=== PATIENT | male | born 1965 | race Caucasian/White ===

== ENCOUNTER 2016-10-06 15:19 | Inpatient (IN) | payer MEDICAID ==
[~2016-10-06] VITALS: Ht 167.6 cm; Wt 71.0 kg
[2016-10-06] MEDS ORDERED: SOD CHLORIDE 0.9% 1,000 ML IV STA (18:54)
[2016-10-06 19:00] VITALS: TEMP 97.8
[2016-10-06] MEDS ORDERED: ENALAPRILAT 1.25 MG INJ IV ONE (19:00)
[2016-10-06 19:25] LABS: ADD UMIC YES; URINE BILIRUBIN (Dip) NEGATIVE (NEGATIVE); URINE BLOOD (Dip) 1+ (NEGATIVE); URINE COLOR LT. YELLOW (YELLOW); URINE GLUCOSE (Dip) NEGATIVE (NEGATIVE); URINE KETONES (Dip) NEGATIVE (NEGATIVE); URINE LEUKOCYTE ESTERASE (Dip) NEGATIVE (NEGATIVE); URINE NITRITE (Dip) NEGATIVE (NEGATIVE); URINE TOTAL PROTEIN (Dip) 2+ (NEGATIVE); URINE UROBILINOGEN (Dip) 0.2 E.U./dL (0.1-1.0)
[2016-10-06 19:27] LABS: BASOPHIL # 0.1 10^3/ul (0.0-0.1); BASOPHILS % 0.5 % (0.0-2.0); EOSINOPHILS # 0.2 10^3/ul (0.0-0.5); EOSINOPHILS % 2.1 % (0.0-7.0); HEMATOCRIT 37.2 % (42.0-52.0); HEMOGLOBIN 12.7 g/dl (14.0-18.0); LYMPHOCYTES # 3.6 10^3/ul (0.8-2.9); LYMPHOCYTES % 32.2 % (15.0-51.0); MEAN CORPUSCULAR HEMOGLOBIN 29.8 pg (29.0-33.0); MEAN CORPUSCULAR HGB CONC 34.1 g/dl (32.0-37.0); MEAN CORPUSCULAR VOLUME 87.3 fl (82.0-101.0); MEAN PLATELET VOLUME 8.8 fl (7.4-10.4); MONOCYTE # 0.8 10^3/ul (0.3-0.9); MONOCYTES % 7.2 % (0.0-11.0); NEUTROPHIL # 6.5 10^3/ul (1.6-7.5); PLATELET COUNT 202 10^3/UL (140-440); RED BLOOD COUNT 4.26 10^6/ul (4.70-6.10); RED CELL DISTRIBUTION WIDTH 13.8 % (11.5-14.5); UNCORRECTED WBC 11.1 10^3/ul (4.8-10.8); WHITE BLOOD COUNT 11.1 10^3/ul (4.8-10.8)
[2016-10-06 19:30] LABS: CHLORIDE 94 mmol/L (97-110); POTASSIUM 3.4 mmol/L (3.5-5.1); SODIUM 139 mmol/L (135-144)
--- NOTE | 2016-10-06 19:31 | RADRPT ---
PROCEDURE: XR Chest. CLINICAL INDICATION: Shortness of breath TECHNIQUE: A single portable view of the chest was obtained. COMPARISON: None FINDINGS: The aorta is tortuous. The cardiomediastinal silhouette is otherwise within normal limits. The josy gs and pleural spaces are clear. The soft tissues and osseous structures are unremarkable. IMPRESSION: No acute cardiopulmonary disease. RPTAT: HPNM Physician Debra Date Time Electronically viewed and signed by Roby Gallegos Physician on 10/06/2016 19:31 /
[2016-10-06 19:32] LABS: ALBUMIN/GLOBULIN RATIO 1.11; ALKALINE PHOSPHATASE 108 IU/L (42-121); ANION GAP 18 (8-16); ASPARTATE AMINO TRANSFERASE 27 IU/L (15-46); BILIRUBIN,INDIRECT 0.2 mg/dl (0-1.1); BILIRUBIN,TOTAL 0.2 mg/dl (0.2-1.3); CARBON DIOXIDE 30 mmol/L (21-31); CREATININE 5.59 mg/dl (0.61-1.24); TOTAL PROTEIN 7.6 g/dl (6.1-8.1)
[2016-10-06 19:33] LABS: ALANINE AMINOTRANSFERASE 22 IU/L (13-69); BLOOD UREA NITROGEN 76 mg/dl (7-20); CONDITION 1; GLUCOSE 101 mg/dl (70-220)
[2016-10-06 19:44] LABS: URINE RBCS 0-2 /HPF (0)
[2016-10-06 19:46] LABS: TROPONIN-I < 0.012 ng/ml (0.00-0.12)
--- NOTE | 2016-10-06 19:47 | ERA ---
ER Documentation Chief Complaint Date/Time DATE: 10/06/16 TIME: 19:46 Chief Complaint SENT BY FOR ABNORMAL LABS DRAWN 3 DAYS AGO. FEELING ANXIOUS. HIGH BUN/CR HPI 51-year-old man referred here for high creatinine level. He states for the last few month he has been feeling very weak and tired, he has had 8-10 pound weight loss over the last 2 months, and states over the last 2 years he has had increased vision loss. He states on the weekends he uses an [id number] erection enhancement medication for the last few years, but other than that he is used no medications and has not seen a physician. States his brother of renal issues in his 60s. Patient denies hematuria or back pain, no fevers or chills, no vomiting or diarrhea, no headache. ROS All systems reviewed and are negative except as per history of present illness. Medications Home Meds No Active Prescriptions or Reported Meds Allergies Allergies: Coded Allergies: No Known Allergy (Unverified , 10/06/16) PMhx/Soc Medical and Surgical Hx: pt denies Surgical Hx History of Surgery: No Anesthesia Reaction: No Hx Neurological Disorder: No Hx Respiratory Disorders: No Hx Cardiac Disorders: Yes (HTN ) Hx Psychiatric Problems: No Hx Miscellaneous Medical Probl: No Hx Alcohol Use: No Hx Substance Use: No Hx Tobacco Use: No Smoking Status: Never smoker FmHx Renal problems Family History: No diabetes Physical Exam Vitals Vital Signs Date Time Temp Pulse Resp B/P Pulse Ox O2 Delivery O2 Flow Rate FiO2 10/06/16 21:33 76 20 171/89 99 Room Air 10/06/16 20:23 78 18 184/99 98 Room Air 10/06/16 19:00 97.8 77 20 194/98 99 Room Air 10/06/16 15:26 98.7 97 20 184/108 97 Physical Exam GENERAL: Well-developed, well-nourished, well-hydrated, in no apparent distress , looks nontoxic in appearance HEENT: Moist mucous membranes, pink conjunctiva, no cervical spine tenderness or step-off deformities, no goiter, no jaundice or icterus, extraocular movements intact without pain. No submandibular induration, and no pharyngeal erythema NEURO: Alert and oriented 3, cranial nerves II through XII intact bilaterally, pupils equal round reactive to light, no focal deficits or facial asymmetry, sensation intact distally Strength 5/5 in upper and lower extremities bilaterally CARDIAC: Regular rate and rhythm, no murmurs rubs or gallops LUNGS: Clear bilaterally no wheezing crackles or stridor ABDOMEN: Soft nontender, no guarding, no rigidity, no rebound, no psoas sign no obturator sign. Normoactive bowel sounds SKIN: Warm and dry to touch, no abrasions, contusions, or hematomas, no lacerations, no ecchymosis, no target lesions, and without ulcers EXTREMITIES: No clubbing cyanosis or edema, calves are bilaterally symmetrical, no Homans sign, no popliteal cord sign. Distal pulses equal and bilateral PSYCH: Normal affect without agitation or irritability Result Diagram: 10/06/16190410/06/161904 Results 24 hrs Laboratory Tests Test 10/06/16 19:05 10/06/16 19:10 Alanine Aminotransferase (ALT/SGPT) 22IU/L Albumin 4.0g/dl Albumin/Globulin Ratio 1.11 Alkaline Phosphatase 108IU/L Anion Gap 18 Aspartate Amino Transf (AST/SGOT) 27IU/L Basophils # 0.110^3/ul Basophils % 0.5% Blood Urea Nitrogen 76mg/dl Calcium Level 8.0mg/dl Carbon Dioxide Level 30mmol/L Chloride Level 94mmol/L Creatinine 5.59mg/dl Direct Bilirubin 0.00mg/dl Eosinophils # 0.210^3/ul Eosinophils % 2.1% Globulin 3.60g/dl Glucose Level 101mg/dl Hematocrit 37.2% Hemoglobin 12.7g/dl Indirect Bilirubin 0.2mg/dl Lipase 194U/L Lymphocytes # 3.610^3/ul Lymphocytes % 32.2% Mean Corpuscular Hemoglobin 29.8pg Mean Corpuscular Hemoglobin Concent 34.1g/dl Mean Corpuscular Volume 87.3fl Mean Platelet Volume 8.8fl Monocytes # 0.810^3/ul Monocytes % 7.2% Neutrophils # 6.510^3/ul Neutrophils % 58.0% Nucleated Red Blood Cells # 0.010^3/ul Nucleated Red Blood Cells % 0.0/100WBC Platelet Count 89953^3/UL Potassium Level 3.4mmol/L Red Blood Count 4.2610^6/ul Red Cell Distribution Width 13.8% Sodium Level 139mmol/L Total Bilirubin 0.2mg/dl Total Protein 7.6g/dl Troponin I < 0.012ng/ml White Blood Count 11.110^3/ul Urine Bilirubin NEGATIVE Urine Clarity CLEAR Urine Color LT. YELLOW Urine Glucose NEGATIVE% Urine Hemoglobin 1+ Urine Ketones NEGATIVE Urine Leukocyte Esterase NEGATIVE Urine Microscopic RBC 0-2/HPF Urine Microscopic WBC 0-2/HPF Urine Nitrite NEGATIVE Urine Specific [place] 1.010 Urine Total Protein 2+ Urine Urobilinogen 0.2 E.U./dL Urine pH 7.0 Current Medications Medications (Trade) Dose Ordered Sig/Mick Route PRN Reason Start Time Stop Time Status Last Admin Dose Admin Sodium Chloride (NS) 1,000 ml @ 1,000 mls/hr Q1H STAT IV 10/06/16 18:54 10/06/16 19:53 DC 10/06/16 19:43 Enalaprilat 1.25 mg 1.25 mg ONCE ONCE IV 10/06/16 19:00 10/06/16 19:01 DC 10/06/16 19:54 Potassium Chloride 250 ml @ 62.5 mls/hr ONCE ONCE IVPB 10/06/16 21:00 10/07/16 00:59 Calcium Gluconate/ Sodium Chloride (Ca Gluc/NS) 110 ml @ 110 mls/hr ONCE ONCE IVPB 10/06/16 21:00 10/06/16 21:59 DC 10/06/16 21:25 Hydralazine HCl (Apresoline) 10 mg Q6H PRN IV sbp>160mmhg 10/06/16 21:30 Metoprolol Tartrate (Lopressor) 25 mg BID PO 10/06/16 21:30 Aspirin (Halfprin) 81 mg DAILY PO 10/07/16 09:00 Docusate Sodium (Colace) 100 mg BID PO 10/07/16 09:00 Ondansetron HCl (Zofran Inj) 4 mg Q6H PRN IV NAUSEA AND/OR VOMITING 10/06/16 21:30 Famotidine (Pepcid) 20 mg DAILY PO 10/07/16 09:00 Heparin Sodium (Porcine) (Heparin (5000 Units/0.5 ml)) 5,000 unit BID SC 10/07/16 09:00 Hydralazine HCl (Apresoline) 25 mg Q8 PO 10/06/16 22:00 Procedures/MDM IV line was established patient was placed on leather belt shaper rhythm strip revealed a sinus rhythm at about 80 bpm with upright P and T waves. I administered 1 L normal saline intravenously and enalapril 1.25 mg IV for severe hypertension. EKG performed, read by me revealed a normal sinus rhythm at 80 bpm, normal axis , right ventricular conduction delay with a QRS duration of 102 ms, no concerning ST elevations or depressions noted. Chest X-ray 1V Interpreted by me: Soft Tissue: No acute abnormalities Bones: No acute abnormalities Mediastinum/Cardiac Silhouette/Lungs: No acute abnormalities CBC revealed mild anemia, electrolytes revealed hypokalemia and kidney failure with a BUN/creatinine of 76/5.6, liver function tests were unremarkable, calcium was low at 8, troponin was negative. Urine analysis was positive for 2 + proteins, no signs of infection. I administered calcium gluconate 1 g IV for hypocalcemia. Critical Care: Time: 35 minutes, this was time separate from other procedures. Treatments/Evaluations: Close monitoring and treatment of unstable vital signs, cardiorespiratory, and neurologic status, while maintaining tight balance of fluid, respiratory, and cardiac interventions. Bedside funduscopic examination was performed and I did not appreciate cotton- wool spots, hemorrhages, or obvious arteriolar narrowing. Although given the patient's symptoms and presentation I do suspect hypertensive retinopathy. Patient admitted to telemetry setting for continued medical management and nephrology consultation. Departure Diagnosis: Primary Impression: Acute renal failure Qualified Code: N17.0 - Acute renal failure with tubular necrosis Additional Impressions: Hypertensive nephrosclerosis Qualified Code: I12.9 - Hypertensive nephrosclerosis, stage 1-4 or unspecified chronic kidney disease Hypertensive retinopathy Qualified Code: H35.033 - Hypertensive retinopathy, bilateral Hypokalemia Hypocalcemia Condition: MAME Almendarez MD Oct 06, 2016 19:47
[2016-10-06] MEDS ORDERED: POTASSIUM CHLORIDE 250 ML IVPB ONE (21:00)
[2016-10-06] MEDS ORDERED: CALCIUM GLUCONATE 10% 1 GM in SOD CHLORIDE 0.9% 100 ML IVPB ONE (21:00)
--- NOTE | 2016-10-06 21:26 | HP ---
Date/Time of Note Date/Time of Note DATE: 10/06/16 TIME: 21:04 Assessment/Plan VTE Prophylaxis VTE Prophylaxis Intervention: SCD's Assessment/Plan Assessment/Plan 51 yo M sent to ER by MD with 1. Accelerated HTN 2. Acute renal failure r/o CKD versus Hypertensive Nephropathy 3. Hypokalemia PLAN: Admit tele Commence oral hypertensives to improve BP control Renal USS / Nephrology consult / gentle hydration for renal failure r/o ACS / 2D echo Renally dose all meds. Serial labs. PROPHYLAXIS: heparin . pepcid HPI/ROS Admit Date/Time Admit Date/Time 10/06/16 Hx of Present Illness PRESENTING COMPLAINT: sent by MD yesterday for abnormal labs HISTORY OF PRESENTING COMPLAINT: 51 yo M who went to urgent care for a routine physicial and was found to have severely elevated blood pressures. He was reffered to the ER here where he was also found to be in renal failure with creatinine of 5.6. He denies CP, n/v/d/c. he denies hematuria or dysuria or flank pain. He does have mild lethargy but no other symptoms. he had gone in just for a routine physical. ROS 12 point review if systems was done and pertinent findings are as noted. PMH/Family/Social Past Medical History * None per patient Past Surgical History Past Surgical Hx: no surgical history Family History Significant Family History: hypertension Social History Alcohol Use: none Smoking Status: Never smoker Drug Use: none Exam/Review of Systems Vital Signs Vitals VS - Last 72 Hours, by Label Date Time Temp Pulse Resp B/P Pulse Ox O2 Delivery O2 Flow Rate FiO2 10/06/16 20:23 78 18 184/99 98 Room Air 10/06/16 19:00 97.8 77 20 194/98 99 Room Air 10/06/16 15:26 98.7 97 20 184/108 97 Vital Signs Date Time Temp Pulse Resp B/P Pulse Ox O2 Delivery O2 Flow Rate FiO2 10/06/16 20:23 78 18 184/99 98 Room Air 10/06/16 19:00 97.8 Exam Constitutional: alert, oriented, No distress Head: normocephalic Eyes: PERRL ENMT: mucosa pink and moist Neck: supple Respiratory: clear to auscultation, normal air movement Cardiovascular: regular rate and rhythm Gastrointestinal: bowel sounds, non-tender, soft Musculoskeletal: nl extremities to inspection Extremities: No edema Neurological: nl mental status, nl speech, No focal weakness Labs Result Diagram: 10/06/16190410/06/161904 Medications Medications Current Medications Potassium Chloride 250 ml @ 62.5 mls/hr ONCE ONCE IVPB ; Start 10/06/16 at 21: 00; Stop 10/07/16 at 00:59 Calcium Gluconate/ Sodium Chloride (Ca Gluc/NS) 110 ml @ 110 mls/hr ONCE ONCE IVPB ; Start 10/06/16 at 21:00; Stop 10/06/16 at 21:59 Procedures Procedures Laboratory Tests Test 10/06/16 19:05 10/06/16 19:10 Alanine Aminotransferase (ALT/SGPT) 22IU/L Albumin 4.0g/dl Albumin/Globulin Ratio 1.11 Alkaline Phosphatase 108IU/L Anion Gap 18 Aspartate Amino Transf (AST/SGOT) 27IU/L Basophils # 0.110^3/ul Basophils % 0.5% Blood Urea Nitrogen 76mg/dl Calcium Level 8.0mg/dl Carbon Dioxide Level 30mmol/L Chloride Level 94mmol/L Creatinine 5.59mg/dl Direct Bilirubin 0.00mg/dl Eosinophils # 0.210^3/ul Eosinophils % 2.1% Globulin 3.60g/dl Glucose Level 101mg/dl Hematocrit 37.2% Hemoglobin 12.7g/dl Indirect Bilirubin 0.2mg/dl Lipase 194U/L Lymphocytes # 3.610^3/ul Lymphocytes % 32.2% Mean Corpuscular Hemoglobin 29.8pg Mean Corpuscular Hemoglobin Concent 34.1g/dl Mean Corpuscular Volume 87.3fl Mean Platelet Volume 8.8fl Monocytes # 0.810^3/ul Monocytes % 7.2% Neutrophils # 6.510^3/ul Neutrophils % 58.0% Nucleated Red Blood Cells # 0.010^3/ul Nucleated Red Blood Cells % 0.0/100WBC Platelet Count 39450^3/UL Potassium Level 3.4mmol/L Red Blood Count 4.2610^6/ul Red Cell Distribution Width 13.8% Sodium Level 139mmol/L Total Bilirubin 0.2mg/dl Total Protein 7.6g/dl Troponin I < 0.012ng/ml White Blood Count 11.110^3/ul Urine Bilirubin NEGATIVE Urine Clarity CLEAR Urine Color LT. YELLOW Urine Glucose NEGATIVE% Urine Hemoglobin 1+ Urine Ketones NEGATIVE Urine Leukocyte Esterase NEGATIVE Urine Microscopic RBC 0-2/HPF Urine Microscopic WBC 0-2/HPF Urine Nitrite NEGATIVE Urine Specific [place] 1.010 Urine Total Protein 2+ Urine Urobilinogen 0.2 E.U./dL Urine pH 7.0 Current Medications Medications (Trade) Dose Ordered Sig/Mick Route PRN Reason Start Time Stop Time Status Last Admin Dose Admin Sodium Chloride (NS) 1,000 ml @ 1,000 mls/hr Q1H STAT IV 10/06/16 18:54 10/06/16 19:53 DC 10/06/16 19:43 1,000 MLS/HR Enalaprilat 1.25 mg 1.25 mg ONCE ONCE IV 10/06/16 19:00 10/06/16 19:01 DC 10/06/16 19:54 1.25 MG Potassium Chloride 250 ml @ 62.5 mls/hr ONCE ONCE IVPB 10/06/16 21:00 10/07/16 00:59 Calcium Gluconate/ Sodium Chloride (Ca Gluc/NS) 110 ml @ 110 mls/hr ONCE ONCE IVPB 10/06/16 21:00 10/06/16 21:59 PROCEDURE: XR Chest. CLINICAL INDICATION: Shortness of breath TECHNIQUE: A single portable view of the chest was obtained. COMPARISON: None FINDINGS: The aorta is tortuous. The cardiomediastinal silhouette is otherwise within normal limits. The lungs and pleural spaces are clear. The soft tissues and osseous structures are unremarkable. IMPRESSION: No acute cardiopulmonary disease. RPTAT: HPNM Roby Gallegos, Physician Date Time Electronically viewed and signed by Roby Gallegos, Physician on 10/06/2016 19 :31 I reviewed EKG Rate: Within normal limits Rhythm: sinus Note: No ST elevation or depressions noted concerning for acute ischemic event. ERIC LIVE Oct 06, 2016 21:14
[2016-10-06 21:30] VITALS: BMI 25.3
[2016-10-06] MEDS ORDERED: hydrALAzine 20 MG INJ IV PRN (21:30)
[2016-10-06] MEDS ORDERED: ONDANSETRON 4 MG INJ IV PRN (21:30)
--- NOTE | 2016-10-06 22:23 | RADRPT ---
PROCEDURE: Renal US. CLINICAL INDICATION: Abnormal laboratory values TECHNIQUE: Multiple sonographic images of the kidneys were obtained. The images were reviewed on a PACS workstation. Technical note: The exam is limited by the patient's large body habitus COMPARISON: No prior studies are available for comparison. FINDINGS: Right kidney: Increased cortical echogenicity with multiple simple appearing cysts, the largest umair sure 1.5 x 1.3 x 1.1 cm. No solid mass, calculus or hydronephrosis is present. Renal length is wit hin normal limits estimated at 9.4 cm. Left kidney: Increase cortex echogenicity with multiple simple cysts the largest measuring 3.8 x 2. 9 x 3.2 cm. No solid mass, calculus or hydronephrosis is present. Renal length is within normal li mits estimated at 12.4 cm. Urinary bladder: Unremarkable RPTAT:HJJR IMPRESSION: 1. Increased renal cortex echogenicity concerning for medical renal disease with normal renal size. 2. Simple appearing acquired cysts of the kidneys. 3. No evidence of hydronephrosis. Physician Isiah Date Time Electronically viewed and signed by Physician Isiah on 10/06/2016 22:23 /
[2016-10-06 23:09] VITALS: PULSE 82
[2016-10-06 23:47] LABS: BARBITURATES NEGATIVE (NEGATIVE); BENZODIAZEPINES NEGATIVE (NEGATIVE); CANNABINOIDS NEGATIVE (NEGATIVE); COCAINE NEGATIVE (NEGATIVE)
[2016-10-06 23:48] LABS: OPIATES NEGATIVE (NEGATIVE)
[2016-10-07] VITALS (16 sets, daily range): BP systolic 116–163; BP diastolic 61–94; PULSE 66–75; RESP 18–20; Ht 167.6 cm; Wt 71.0 kg
[2016-10-07] MEDS: METOPROLOL 25 MG TAB PO SCH ×3 (00:42→21:11)
[2016-10-07 01:26] LABS: CREATINE KINASE 222 IU/L (23-200)
[2016-10-07 01:37] LABS: CK-MB 1.98 ng/ml (0.0-2.4); TROPONIN-I < 0.012 ng/ml (0.00-0.12)
[2016-10-07] MEDS: ACETAMINOPHEN 325 MG TAB PO PRN (07:03)
[2016-10-07] MEDS: DOCUSATE SODIUM 100 MG CAP PO SCH ×2 (08:52→21:10)
[2016-10-07] MEDS: ASPIRIN (EC) 81 MG TAB PO SCH (08:52)
[2016-10-07] MEDS: HEPARIN 5,000 UNIT/0.5 ML SYG SC SCH ×3 (08:56→21:11)
[2016-10-07 09:54] LABS: BASOPHILS % 0.2 % (0.0-2.0); EOSINOPHILS # 0.3 10^3/ul (0.0-0.5); EOSINOPHILS % 2.9 % (0.0-7.0); HEMOGLOBIN 12.6 g/dl (14.0-18.0); LYMPHOCYTES # 2.3 10^3/ul (0.8-2.9); LYMPHOCYTES % 24.8 % (15.0-51.0); MEAN CORPUSCULAR HEMOGLOBIN 29.8 pg (29.0-33.0); MEAN CORPUSCULAR VOLUME 87.8 fl (82.0-101.0); MEAN PLATELET VOLUME 8.9 fl (7.4-10.4); MONOCYTE # 0.7 10^3/ul (0.3-0.9); MONOCYTES % 7.9 % (0.0-11.0); NEUTROPHILS % 64.2 % (39.0-77.0); PLATELET COUNT 193 10^3/UL (140-440); RED BLOOD COUNT 4.21 10^6/ul (4.70-6.10); RED CELL DISTRIBUTION WIDTH 14.2 % (11.5-14.5); UNCORRECTED WBC 9.3 10^3/ul (4.8-10.8); WHITE BLOOD COUNT 9.3 10^3/ul (4.8-10.8)
[2016-10-07 10:04] LABS: PARTIAL THROMBOPLASTIN TIME 29.6 Sec (25.0-35.0)
[2016-10-07 10:05] LABS: CONDITION 1
[2016-10-07 10:07] LABS: INR 0.91; PROTIME 12.2 Sec (12.2-14.2)
[2016-10-07 10:15] LABS: CREATINE KINASE 207 IU/L (23-200)
--- NOTE | 2016-10-07 10:16 | PN ---
Date/Time of Note Date/Time of Note DATE: 10/07/16 TIME: 10:13 Assessment/Plan VTE Prophylaxis VTE Prophylaxis Intervention: heparin Lines/Catheters IV Catheter Type (from Nrsg): Peripheral IV Urinary Cath still in place: No Assessment/Plan Assessment/Plan 51 yo M sent to ER by MD with 1. Hypertensive Urgency - blood pressure stable - continue with hydralazine/ lopressor - monitor acute changes 2. Acute renal failure r/o CKD versus Hypertensive Nephropathy - awaiting nephro consult - CKD stage IV - will continue with IVF 3. Hypokalemia - replete, check magnesium 4. GI ppx - pepcid 5. DVT ppx - heparin dispo - f/u recs, labs, as per clinical course this progress note took greater than 40 minutes to complete Subjective 24 Hr Interval Summary Free Text/Dictation Patient was admitted for hypertensive urgency and chronic kidney disease. Patient has not been taking his blood pressure medications. Denies any family history of kidney/renal disease. Spoke to him in [place] about the care plan. 20 minutes spent. Exam/Review of Systems Vital Signs Vitals Vital Signs Date Time Temp Pulse Resp B/P Pulse Ox O2 Delivery O2 Flow Rate FiO2 10/07/16 08:57 73 10/07/16 06:59 98.0 18 116/66 97 10/07/16 06:10 Room Air Intake and Output 10/06/16 10/06/16 10/07/16 15:00 23:00 07:00 Intake Total 150 ml Output Total 610 ml Balance -460 ml Exam Gen Prasanna: NAD, AAOx4 HEENT: NC/AT, PERRLA, EOMI, no pharyngeal erythema, no tonsillar exudates, no lymphadenopathy, no JVD, no carotid bruits NECK: supple, no thyromegaly THORAX: symmetrical, no obvious deformities CV: S1S2, RRR, no M/G/R Lungs: CTAB no W/C/R/R Abd: soft, NT/ND, +BS, no rebound, no guarding, neg HSM EXT: no edema, no ecchymosis, no clubbing, FROM Neuro: CN II-XII grossly intact, no focal deficits Psych: good mentation, alert and oriented, good mood and affect Skin: C/D/I Results Result Diagram: 10/07/16 0935 10/06/16 7020 Results 24 hrs Laboratory Tests Test 2/7/17 19:05 10/06/16 19:10 10/07/16 00:27 10/07/16 09:35 Alanine Aminotransferase (ALT/SGPT) 22 Albumin 4.0 Albumin/Globulin Ratio 1.11 Alkaline Phosphatase 108 Anion Gap 18 H Aspartate Amino Transf (AST/SGOT) 27 Basophils # 0.1 0.0 Basophils % 0.5 0.2 Blood Urea Nitrogen 76 H Calcium Level 8.0 L Carbon Dioxide Level 30 Chloride Level 94 L Creatinine 5.59 H Direct Bilirubin 0.00 Eosinophils # 0.2 0.3 Eosinophils % 2.1 2.9 Globulin 3.60 H Glucose Level 101 Hematocrit 37.2 L 37.0 L Hemoglobin 12.7 L 12.6 L Indirect Bilirubin 0.2 Lipase 194 Lymphocytes # 3.6 H 2.3 Lymphocytes % 32.2 24.8 Mean Corpuscular Hemoglobin 29.8 29.8 Mean Corpuscular Hemoglobin Concent 34.1 34.0 Mean Corpuscular Volume 87.3 87.8 Mean Platelet Volume 8.8 8.9 Monocytes # 0.8 0.7 Monocytes % 7.2 7.9 Neutrophils # 6.5 6.0 Neutrophils % 58.0 64.2 Nucleated Red Blood Cells # 0.0 0.0 Nucleated Red Blood Cells % 0.0 0.0 Platelet Count 202 193 Potassium Level 3.4 L Red Blood Count 4.26 L 4.21 L Red Cell Distribution Width 13.8 14.2 Sodium Level 139 Total Bilirubin 0.2 Total Protein 7.6 Troponin I < 0.012 < 0.012 White Blood Count 11.1 H 9.3 Urine Amphetamines Screen NEGATIVE Urine Barbiturates NEGATIVE Urine Benzodiazepines Screen NEGATIVE Urine Bilirubin NEGATIVE Urine Cannabinoids NEGATIVE Urine Clarity CLEAR Urine Cocaine Screen NEGATIVE Urine Color LT. YELLOW Urine Glucose NEGATIVE Urine Hemoglobin 1+ H Urine Ketones NEGATIVE Urine Leukocyte Esterase NEGATIVE Urine Microscopic RBC 0-2 Urine Microscopic WBC 0-2 Urine Nitrite NEGATIVE Urine Opiates Screen NEGATIVE Urine Specific [place] 1.010 Urine Total Protein 2+ H Urine Urobilinogen 0.2 E.U./dL Urine pH 7.0 Creatine Kinase 222 H Creatine Kinase Index 0.9 Creatinine Kinase MB (Mass) 1.98 Activated Partial Thromboplast Time 29.6 INR International Normalized Ratio 0.91 Prothrombin Time 12.2 Prothrombin Time Ratio 1.0 Medications Medications Current Medications Hydralazine HCl (Apresoline) 10 mg Q6H PRN IV sbp>160mmhg Last administered on 10/07/16 03:19; Admin Dose 10 MG; Start 10/06/16 at 21:30 Metoprolol Tartrate (Lopressor) 25 mg BID PO Last administered on 10/07/16 08: 53; Admin Dose 25 MG; Start 10/06/16 at 21:30 Aspirin (Halfprin) 81 mg DAILY PO Last administered on 10/07/16 08:52; Admin Dose 81 MG; Start 10/07/16 at 09:00 Docusate Sodium (Colace) 100 mg BID PO Last administered on 10/07/16 08:52; Admin Dose 100 MG; Start 10/07/16 at 09:00 Ondansetron HCl (Zofran Inj) 4 mg Q6H PRN IV NAUSEA AND/OR VOMITING; Start 10/06 at 21:30 Famotidine (Pepcid) 20 mg DAILY PO ; Start 10/07/16 at 09:00 Heparin Sodium (Porcine) (Heparin (5000 Units/0.5 ml)) 5,000 unit BID SC Last administered on 10/07/16 08:56; Admin Dose 5,000 UNIT; Start 10/07/16 at 09:00 Hydralazine HCl (Apresoline) 25 mg Q8 PO Last administered on 10/07/16 06:13; Admin Dose 25 MG; Start 10/06/16 at 22:00 Acetaminophen (Tylenol Tab) 650 mg Q6H PRN PO PAIN AND OR ELEVATED TEMP Last administered on 10/07/16 07:03; Admin Dose 650 MG; Start 10/07/16 at 07:00 KATHRIN SANDERS MD Oct 07, 2016 10:16
[2016-10-07 10:32] LABS: CK-MB 1.65 ng/ml (0.0-2.4); TROPONIN-I < 0.012 ng/ml (0.00-0.12)
[2016-10-07 10:49] LABS: THYROID STIMULATING HORMONE 2.46 MIU/L (0.465-4.680)
[2016-10-07 10:55] LABS: HAAIG REFLEX REFLEX FILED
[2016-10-07 11:07] LABS: CHLORIDE 97 mmol/L (97-110); POTASSIUM 3.6 mmol/L (3.5-5.1); SODIUM 139 mmol/L (135-144)
[2016-10-07 11:09] LABS: CREATINE KINASE 217 IU/L (23-200)
[2016-10-07 11:10] LABS: ANION GAP 14 (8-16); BLOOD UREA NITROGEN 72 mg/dl (7-20); CALCIUM 8.1 mg/dl (8.4-10.2); CARBON DIOXIDE 32 mmol/L (21-31); GLUCOSE 99 mg/dl (70-220); URIC ACID 9.3 mg/dl (3.1-7.9)
[2016-10-07 11:27] LABS: CHOL/HDL RATIO 9.4 RATIO
[2016-10-07 11:28] LABS: MAGNESIUM 1.8 mg/dl (1.7-2.5)
[2016-10-07 11:59] LABS: HEPATITIS B CORE ANTIBODY NEGATIVE (NEGATIVE)
--- NOTE | 2016-10-07 12:44 | CONS ---
DATE OF ADMISSION: 10/06/2016 DATE OF CONSULTATION: 10/06/2016 NEPHROLOGY CONSULTATION REASON FOR CONSULTATION: Acute kidney injury versus acute on chronic renal failure with a creatinin e 5.2. REFERRING PHYSICIAN: Aneudy Coreas MD HISTORY OF PRESENT ILLNESS: This is a 51-year-old male who has a past medical history of hypertensi on, history of previous chronic kidney disease, unknown stage, likely stage IV, as per the patient, vague history likely secondary to hypertensive nephrosclerosis, who has not been seen by any doctor since 2009. The patient has not been taking any of his blood pressure medications. He denies any p revious family history of kidney disease or dialysis in the family. The patient presented to the [facility] with a blood pressure of 194/98. He is noted to have a creatinine of 5.2 . The patient had a significant advanced acute chronic kidney disease. On top of that, he has acut e on chronic renal failure, progressing to end-stage renal disease and nephrology has been consulted for management of that. At the time of my evaluation, he denies any chest pain, palpitations, head ache, dizziness, blurry vision, constipation, diarrhea, dysuria, increased urinary frequency. REVIEW OF SYSTEMS: Positive for elevated blood pressures, nausea, vomiting, and difficulty in sleep . Other 12 point review of systems has been obtained and is negative except what is mentioned in th e history of present illness. PAST MEDICAL HISTORY: History of hypertension, possible history of chronic kidney disease stage IV as per the patient's vague history, has not seen any physician for the last 5 to 6 years. PAST SURGICAL HISTORY: None as per the patient. SOCIAL HISTORY: The patient denies any smoking, alcohol, or recreational drug use. FAMILY HISTORY: Noncontributory. The patient denies any history of chronic kidney disease or end-s tage renal disease in the family. PHYSICAL EXAMINATION: VITAL SIGNS: Temperature 98.2, heart rate 78, respirations 18, blood pressure 146/84, saturation 97 % on room air. GENERAL: Awake, alert, in moderate distress. HEENT: Normal. Oropharynx clear. NECK: Supple, no JVD, no lymphadenopathy. LUNGS: Clear to auscultation. Bibasilar crackles, rales present. HEART: S1, S2, with regular rhythm. ABDOMEN: Soft, nontender, nondistended. Bowel sounds are present. EXTREMITIES: No clubbing, cyanosis, or edema. NEUROLOGICAL: Nonfocal, intact. PSYCHIATRIC: Appropriate affect and mood. LABORATORY DATA/DIAGNOSTIC IMAGIN. Sodium 139, potassium 3.6, chloride 97, bicarbonate 32, BUN 72, creatinine is 5.2, glucose 99, c alcium is 8.1, uric acid 9.3, CK 217. PT 12.2, PTT 29.6, INR 0.91. 2. Urinalysis consistent with 1+ hemoglobin, 2+ protein. 3. A urine toxicology is negative. 4. HIV and hepatitis panel have been negative. 5. WBC 9.7, hemoglobin 12.6, platelet count is 193. 6. Renal ultrasound done in the emergency room shows increased renal cortical echogenicity concerni ng for medical renal disease with normal renal size, simple-appearing acquired cysts of the kidneys. No evidence of hydronephrosis. IMPRESSION: This is a 51-year-old male with: 1. Acute hypertensive emergency. 2. Acute kidney injury on chronic kidney disease stage IV, progressing to end-stage renal disease. 3. History of chronic kidney disease stage IV secondary to hypertensive nephrosclerosis. The patie nt has not been seen by a doctor and has not been taking medications for the last few years. 4. History of hypertension. PLAN: Thank you, Dr. Joss Amado, for this consultation. The patient's renal ultrasound has been consistent with advanced medical renal disease. He gives a history of a chronic kidney disease stag e IV with a very low GFR, has not seen any doctors, has not been taking any blood pressure medicatio ns. Currently, he came in with an acute kidney injury on chronic kidney disease progressing to end- stage renal disease. 1. I will order the HIV, hepatitis panel. 2. Urine studies have been ordered for the workup of a prerenal azotemia. 3. The patient will likely need initiation of hemodialysis, so I will order the catheter placement by interventional radiology tomorrow. The patient is currently seen in the telemetry floor and he w ill be followed up along with the hospitalist team. Dictated By: CHAPIN VIDALES MD, KP/DREW Conf#: [id number] DID#: [id number]
[2016-10-07] MEDS: FAMOTIDINE 20 MG TAB PO SCH (12:52)
--- NOTE | 2016-10-07 22:02 | RADRPT ---
Echocardiogram Report Patient Name: JOÃO SMITH Gender: Male Date: 1965 Study Date: 07-Oct-2016 Golf Teacher: Gian Tyson RDCS Location: 520 Ref. Physician: ERIC LIVE Quality: Good Procedures: Transthoracic echocardiogram with complete 2D, M-Mode, and doppler examination. Indications: Hypertension. 2D/M Mode Doppler Measurement Value Normal Ranges Measurement Value Normal Ranges LVIDd 2D 4.6 3.5 - 5.6 cm AV Peak Aamir 1.1 m/sec LVIDs 2D 3.1 2.1 - 4.1 cm AV Peak PG 5.0 mmHg LVPWd 2D 0.9 0.6 - 1.1 cm LVOT Peak Aamir 0.9 m/sec IVSd 2D 1.0 0.6 - 1.1 cm LVOT Peak PG 3.4 mmHg AoR Diam 2D 3.2 2.0 - 3.7 cm MV E Peak Aamir 0.6 m/sec EDV 2D 98.5 cm3 MV A Peak Aamir 0.7 m/sec ESV 2D 30.5 cm3 MV E/A 0.9 LA Dimen 2D 3.4 2.3 - 4.0 cm MV Decel Time 155 msec MV Decel Bradley 4 MV E/A 0.9 TR Peak Aamir 2.1 m/sec TR Peak PG 17.0 mmHg RVSP 20.0 mmHg Findings Left Ventricle: Normal left ventricular systolic function. Normal left ventricular cavity size. Normal left ventricular wall thickness. Ejection fraction is visually estimated at 65 %. Tissue Doppler/Mitral Doppler indices are consistent with impaired relaxation (Stage I diastolic dysfunction). Right Ventricle: Normal right ventricular size. Normal right ventricular systolic function. Left Atrium: The left atrium is normal in size. Right Atrium: The right atrium is normal in size. Mitral Valve: Normal appearance and function of the mitral valve with trace physiologic regurgitation. Aortic Valve: Normal appearance of the aortic valve. No significant aortic stenosis or insufficiency. Tricuspid Valve: Normal appearance and function of the tricuspid valve with trace physiologic regurgitation. Estimated peak PA systolic pressure 20 mmHg. Pericardium: Normal pericardium with no significant pericardial effusion. Aorta: Normal aortic root. IVC: Normal size and normal respiratory collapse consistent with normal right atrial pressure. Conclusions Normal left ventricular systolic function. Normal left ventricular cavity size. Normal left ventricular wall thickness. Ejection fraction is visually estimated at 65 %. Tissue Doppler/Mitral Doppler indices are consistent with impaired relaxation (Stage I diastolic dysfunction). Normal right ventricular size. Normal right ventricular systolic function. The left atrium is normal in size. The right atrium is normal in size. No significant valvular stenosis or regurgitation seen. Normal pericardium with no significant pericardial effusion. Electronically Signed By: Low Guzman 07-Oct-2016 22:02:31 -0800 Patient Name: JOÃO SMITH Study Date: 07-Oct-2016 [id number]
[2016-10-08] VITALS (29 sets, daily range): BP systolic 105–174; BP diastolic 62–102; PULSE 65–86; RESP 14–20
[2016-10-08] MEDS: HEPARIN 5,000 UNIT/0.5 ML SYG SC SCH ×2 (08:03→21:57)
[2016-10-08] MEDS: FAMOTIDINE 20 MG TAB PO SCH (08:03)
[2016-10-08] MEDS: METOPROLOL 25 MG TAB PO SCH ×2 (08:03→21:48)
[2016-10-08] MEDS: ASPIRIN (EC) 81 MG TAB PO SCH (08:03)
[2016-10-08] MEDS: DOCUSATE SODIUM 100 MG CAP PO SCH ×2 (08:03→21:48)
[2016-10-08 09:53] LABS: BASOPHILS % 0.3 % (0.0-2.0); EOSINOPHILS # 0.3 10^3/ul (0.0-0.5); HEMATOCRIT 39.7 % (42.0-52.0); HEMOGLOBIN 13.2 g/dl (14.0-18.0); LYMPHOCYTES # 3.7 10^3/ul (0.8-2.9); LYMPHOCYTES % 34.4 % (15.0-51.0); MEAN CORPUSCULAR HEMOGLOBIN 29.1 pg (29.0-33.0); MEAN CORPUSCULAR HGB CONC 33.2 g/dl (32.0-37.0); MEAN CORPUSCULAR VOLUME 87.4 fl (82.0-101.0); MEAN PLATELET VOLUME 10.6 fl (7.4-10.4); MONOCYTE # 0.8 10^3/ul (0.3-0.9); MONOCYTES % 7.3 % (0.0-11.0); NEUTROPHIL # 5.9 10^3/ul (1.6-7.5); NEUTROPHILS % 54.4 % (39.0-77.0); PLATELET COUNT 216 10^3/UL (140-440); RED BLOOD COUNT 4.54 10^6/ul (4.70-6.10); RED CELL DISTRIBUTION WIDTH 13.4 % (11.5-14.5); WHITE BLOOD COUNT 10.9 10^3/ul (4.8-10.8)
[2016-10-08] MEDS ORDERED: MAGNESIUM SULFATE 2 GM/50 ML 50 ML IVPB ONE (10:00)
--- NOTE | 2016-10-08 10:01 | PN ---
Date/Time of Note Date/Time of Note DATE: 10/08/16 TIME: 09:57 Assessment/Plan VTE Prophylaxis VTE Prophylaxis Intervention: heparin Lines/Catheters IV Catheter Type (from Nrsg): Saline Lock Urinary Cath still in place: No Assessment/Plan Assessment/Plan 51 yo M sent to ER by with 1. Hypertensive Urgency - blood pressure stable - continue with hydralazine/ lopressor - monitor acute changes - ACEI should be started - defer to nephro 2. Acute renal failure r/o CKD versus Hypertensive Nephropathy - awaiting nephro consult - CKD stage IV - will continue with IVF 3. Hypokalemia - replete, check magnesium 4. GI ppx - pepcid 5. DVT ppx - heparin dispo - f/u recs, labs, as per clinical course, poss d/c tomorrow if stable and cleared this progress note took greater than 30 minutes to complete Subjective 24 Hr Interval Summary Free Text/Dictation Patient had no overnight events. I spoke to him about adhering to the medications as prescribed. Spoke to him about the care plan. 15 minutes spent. Exam/Review of Systems Vital Signs Vitals Vital Signs Date Time Temp Pulse Resp B/P Pulse Ox O2 Delivery O2 Flow Rate FiO2 10/08/16 08:24 70 10/08/16 07:22 98.2 16 116/62 97 10/07/16 06:10 Room Air Intake and Output 10/07/16 10/07/16 10/08/16 15:00 23:00 07:00 Intake Total 240 ml 1000 ml Output Total 200 ml 1500 ml 900 ml Balance 40 ml -500 ml -900 ml Exam Gen Prasanna: NAD, AAOx4 HEENT: NC/AT, PERRLA, EOMI, no pharyngeal erythema, no tonsillar exudates, no lymphadenopathy, no JVD, no carotid bruits NECK: supple, no thyromegaly THORAX: symmetrical, no obvious deformities CV: S1S2, RRR, no M/G/R Lungs: CTAB no W/C/R/R Abd: soft, NT/ND, +BS, no rebound, no guarding, neg HSM EXT: no edema, no ecchymosis, no clubbing, FROM Neuro: CN II-XII grossly intact, no focal deficits Psych: good mentation, alert and oriented, good mood and affect Skin: C/D/I Results Result Diagram: 10/08/16 0900 10/07/16 1040 Results 24 hrs Laboratory Tests Test 10/07/16 10:40 10/07/16 17:40 10/08/16 09:00 Anion Gap 14 Blood Urea Nitrogen 72 H Calcium Level 8.1 L Carbon Dioxide Level 32 H Chloride Level 97 Creatine Kinase 217 H Creatinine 5.20 H Glucose Level 99 HIV (1&2) Antibody NEGATIVE Hepatitis B Core Total Antibody NEGATIVE Hepatitis B Surface Antigen NEGATIVE Hepatitis C Antibody NEGATIVE Potassium Level 3.6 Sodium Level 139 Uric Acid 9.3 H Urine Eosinophils % 0.0 Urine Random Creatinine 36.15 Urine Random Sodium 52 Urine Total Protein Basophils # 0.0 Basophils % 0.3 Eosinophils # 0.3 Eosinophils % 3.0 Hematocrit 39.7 L Hemoglobin 13.2 L Lymphocytes # 3.7 H Lymphocytes % 34.4 Mean Corpuscular Hemoglobin 29.1 Mean Corpuscular Hemoglobin Concent 33.2 Mean Corpuscular Volume 87.4 Mean Platelet Volume 10.6 H Monocytes # 0.8 Monocytes % 7.3 Neutrophils # 5.9 Neutrophils % 54.4 Nucleated Red Blood Cells # 0.0 Nucleated Red Blood Cells % 0.0 Platelet Count 216 Red Blood Count 4.54 L Red Cell Distribution Width 13.4 White Blood Count 10.9 H Medications Medications Current Medications Hydralazine HCl (Apresoline) 10 mg Q6H PRN IV sbp>160mmhg Last administered on 10/07/16 03:19; Admin Dose 10 MG; Start 10/06/16 at 21:30 Metoprolol Tartrate (Lopressor) 25 mg BID PO Last administered on 10/07/16 21: 11; Admin Dose 25 MG; Start 10/06/16 at 21:30 Aspirin (Halfprin) 81 mg DAILY PO Last administered on 10/07/16 08:52; Admin Dose 81 MG; Start 10/07/16 at 09:00 Docusate Sodium (Colace) 100 mg BID PO Last administered on 10/07/16 21:10; Admin Dose 100 MG; Start 10/07/16 at 09:00 Ondansetron HCl (Zofran Inj) 4 mg Q6H PRN IV NAUSEA AND/OR VOMITING; Start 10/06 at 21:30 Famotidine (Pepcid) 20 mg DAILY PO Last administered on 10/07/16 12:52; Admin Dose 20 MG; Start 10/07/16 at 09:00 Heparin Sodium (Porcine) (Heparin (5000 Units/0.5 ml)) 5,000 unit BID SC Last administered on 10/07/16 08:56; Admin Dose 5,000 UNIT; Start 10/07/16 at 09:00 Hydralazine HCl (Apresoline) 25 mg Q8 PO Last administered on 10/07/16 22:08; Admin Dose 25 MG; Start 10/06/16 at 22:00 Acetaminophen (Tylenol Tab) 650 mg Q6H PRN PO PAIN AND OR ELEVATED TEMP Last administered on 10/07/16 07:03; Admin Dose 650 MG; Start 10/07/16 at 07:00 KATHRIN SANDERS MD Oct 08, 2016 09:58
[2016-10-08] MEDS ORDERED: LIDOCAINE 1% (MDV) 20 ML INJ ONE (11:54)
[2016-10-08] MEDS ORDERED: CEFAZOLIN 1 GM/50 ML (PMX) 50 ML IVPB ONE (11:55)
[2016-10-08] MEDS ORDERED: FENTAnyl 50 MCG/ML VIAL ONE (11:55)
[2016-10-08] MEDS ORDERED: SOD CHLORIDE 0.9% 500 ML ONE ×2 (11:55→17:08)
[2016-10-08] MEDS ORDERED: HEPARIN 1000 UNITS/ML 10 ML INJ ONE (11:55)
[2016-10-08] MEDS ORDERED: MIDAZOLAM 1 MG/ML 2 ML INJ ONE (11:55)
--- NOTE | 2016-10-08 12:14 | CONS ---
Date/Time of Note Date/Time of Note DATE: 10/08/16 TIME: 12:11 Assessment/Plan Assessment/Plan Additional Assessment/Plan 1. Acute hypertensive emergency. 2. Acute kidney injury on chronic kidney disease stage IV, progressing to end- stage renal disease. 3. History of chronic kidney disease stage IV secondary to hypertensive nephrosclerosis. The patient has not been seen by a doctor and has not been taking medications for the last few years. 4. History of hypertension. PLAN: Cr still 5.2 with BUN 72 US showed medical renal disease plan is for permacath and then initiation of HD will need HD placement Consultation Date/Type/Reason Admit Date/Time Oct 06, 2016 at 23:10 Initial Consult Date Type of Consultation: NEPHROLOGY Reason for Consultation acute on chronic renal failure progressign to ESRD Referring Provider: KATHRIN SANDERS MD 24 HR Interval Summary Free Text/Dictation pt still c/o uremic symptoms, BP cotnrolled. Plan for permacath today Exam/Review of Systems Vital Signs Vitals Vital Signs Date Time Temp Pulse Resp B/P Pulse Ox O2 Delivery O2 Flow Rate FiO2 10/08/16 10:58 97.9 71 18 155/89 96 10/07/16 06:10 Room Air Intake and Output 10/07/16 10/07/16 10/08/16 14:59 22:59 06:59 Intake Total 240 ml 1000 ml Output Total 200 ml 1500 ml 900 ml Balance 40 ml -500 ml -900 ml Exam GENERAL: Awake, alert, in moderate distress. HEENT: Normal. Oropharynx clear. NECK: Supple, no JVD, no lymphadenopathy. LUNGS: Clear to auscultation. Bibasilar crackles, rales present. HEART: S1, S2, with regular rhythm. ABDOMEN: Soft, nontender, nondistended. Bowel sounds are present. EXTREMITIES: No clubbing, cyanosis, or edema. NEUROLOGICAL: Nonfocal, intact. PSYCHIATRIC: Appropriate affect and mood. Results Result Diagram: 10/08/16 0900 10/07/16 1040 Results 24 hrs Laboratory Tests Test 10/07/16 17:40 10/08/16 09:00 Urine Eosinophils % 0.0 Urine Random Creatinine 36.15 Urine Random Sodium 52 Urine Total Protein Basophils # 0.0 Basophils % 0.3 Eosinophils # 0.3 Eosinophils % 3.0 Hematocrit 39.7 L Hemoglobin 13.2 L Lymphocytes # 3.7 H Lymphocytes % 34.4 Mean Corpuscular Hemoglobin 29.1 Mean Corpuscular Hemoglobin Concent 33.2 Mean Corpuscular Volume 87.4 Mean Platelet Volume 10.6 H Monocytes # 0.8 Monocytes % 7.3 Neutrophils # 5.9 Neutrophils % 54.4 Nucleated Red Blood Cells # 0.0 Nucleated Red Blood Cells % 0.0 Platelet Count 216 Red Blood Count 4.54 L Red Cell Distribution Width 13.4 White Blood Count 10.9 H Medications Medications Current Medications Hydralazine HCl (Apresoline) 10 mg Q6H PRN IV sbp>160mmhg Last administered on 10/07/16 03:19; Admin Dose 10 MG; Start 10/06/16 at 21:30 Metoprolol Tartrate (Lopressor) 25 mg BID PO Last administered on 10/07/16 21: 11; Admin Dose 25 MG; Start 10/06/16 at 21:30 Aspirin (Halfprin) 81 mg DAILY PO Last administered on 10/07/16 08:52; Admin Dose 81 MG; Start 10/07/16 at 09:00 Docusate Sodium (Colace) 100 mg BID PO Last administered on 10/07/16 21:10; Admin Dose 100 MG; Start 10/07/16 at 09:00 Ondansetron HCl (Zofran Inj) 4 mg Q6H PRN IV NAUSEA AND/OR VOMITING; Start 10/06 at 21:30 Famotidine (Pepcid) 20 mg DAILY PO Last administered on 10/07/16 12:52; Admin Dose 20 MG; Start 10/07/16 at 09:00 Heparin Sodium (Porcine) (Heparin (5000 Units/0.5 ml)) 5,000 unit BID SC Last administered on 10/07/16 08:56; Admin Dose 5,000 UNIT; Start 10/07/16 at 09:00 Hydralazine HCl (Apresoline) 25 mg Q8 PO Last administered on 10/07/16 22:08; Admin Dose 25 MG; Start 10/06/16 at 22:00 Acetaminophen (Tylenol Tab) 650 mg Q6H PRN PO PAIN AND OR ELEVATED TEMP Last administered on 10/07/16 07:03; Admin Dose 650 MG; Start 10/07/16 at 07:00 CHAPIN VIDALES MD Oct 08, 2016 12:14
--- NOTE | 2016-10-08 14:57 | RADRPT ---
PROCEDURE: RIGHT INTERNAL JUGULAR PERMA-CATH PLACEMENT CLINICAL INDICATION: Dialysis FLUOROSCOPY TIME: 0.1 minute TECHNIQUE: The procedure, its potential risks, benefits and alternatives were explained. Risks, including but n ot limited to pain, bleeding, infection, thrombosis, embolism and arrhythmia were discussed and und erstood. Following this discussion with the patient, informed consent was obtained. The right internal jugular vein was imaged with ultrasound and was shown to be compressible, with no evidence of thrombus. An image of this vein was obtained and saved to the PACS system. The neck and chest wall were scrubbed, draped and prepped in a sterile manner. The procedure was ca rried out under aseptic conditions. 2% lidocaine with epinephrine was utilized for local anesthesia . Following the standard prep, and under ultrasound guidance, the right internal jugular vein was punctured using anterior single wall micropuncture technique, and a micropuncture catheter was plac ed within it. A 0.35" guidewire was inserted through it, and over this a [place] dialysis catheter d elivery sheath was placed, with tip within the right atrium. A [place] dialysis catheter was then pl aced through the sheath, with the long arm of the catheter positioned laterally within the right atr ium and the short arm medially at the cavoatrial junction. Fluoroscopy was utilized to guide placeme nt of the catheter. An image of its final position was saved to the PACS system. The peel-away sheat h was then removed. The remaining portion of the catheter was then positioned on the skin, and the appropriate catheter exit site was thereby determined. Following this, the skin was anesthetized at the chosen catheter exit site, and incised with a disposable blade. A tract connecting the skin ex it site with the vein entry site was then anesthetized. Using a tunneling device and a fascial dila tor, the subcutaneous tract connecting the chest wall exit site with the vein entry site was dilated . The tunneling device was then used to pull the catheter through the subcutaneous tract. Fluorosc opy showed no evidence of kinking over the course of the catheter. The external portion of the cath eter was then cut, and the dual lumen hub was affixed to it in standard manner. The catheter was fl ushed, with good blood return. It was heparinized according to standard protocol. The vein entry s ite was then closed with Dermabond. The patient tolerated the procedure well. The procedure was done under monitored moderate sedation. I administered the first dose and oversaw subsequent monitoring by the nursing staff. COMPARISON: none FINDINGS: as above. IMPRESSION: Placement of PermaCath via the right internal jugular vein, as above. The catheter is ready for use. RPTAT: EE Physician Jannette Date Time Electronically viewed and signed by Brian Pena Physician on 10/08/2016 14:56 RA/
--- NOTE | 2016-10-08 14:58 | RADRPT ---
PROCEDURE: ULTRASOUND-GUIDED VASCULAR ACCESS CLINICAL INDICATION: Perma-Cath placement TECHNIQUE: Informed consent was obtained from the patient after a discussion of the risks, benefit s, and alternatives of the procedure. Risks include, but are not limited to bleeding and infection. The right internal jugular vein was found to be patent and compressible with lopez scale and power D oppler. A picture of it was saved to the PACS. 1% lidocaine was utilized for anesthesia. Under di rect ultrasound guidance, a 21-gauge needle was advanced into the right internal jugular vein. A wi re was advanced through the micropuncture needle. The micropuncture needle was then removed over th e wire and a 5-Frisian catheter was advanced over the wire. COMPARISON: None. FINDINGS: Patent and compressible right internal jugular vein. IMPRESSION: Ultrasound guided vascular access for placement of a Perma-Cath. RPTAT: EE Physician Jannette Date Time Electronically viewed and signed by Physician Jannette on 10/08/2016 14:57 /
[2016-10-08] MEDS: ACETAMINOPHEN 325 MG TAB PO PRN (17:20)
[2016-10-09] VITALS (20 sets, daily range): BP systolic 110–161; BP diastolic 64–98; PULSE 61–98; RESP 14–18
[2016-10-09 06:47] LABS: POTASSIUM 3.6 mmol/L (3.5-5.1)
[2016-10-09 06:50] LABS: CREATININE 5.31 mg/dl (0.61-1.24)
[2016-10-09 06:51] LABS: CALCIUM 8.4 mg/dl (8.4-10.2)
[2016-10-09 07:05] LABS: ADD SCAN DIFF NO
[2016-10-09 07:07] LABS: BASOPHILS % 0.4 % (0.0-2.0); EOSINOPHILS # 0.4 10^3/ul (0.0-0.5); EOSINOPHILS % 3.5 % (0.0-7.0); LYMPHOCYTES # 3.6 10^3/ul (0.8-2.9); LYMPHOCYTES % 34.2 % (15.0-51.0); MEAN CORPUSCULAR HEMOGLOBIN 29.3 pg (29.0-33.0); MEAN CORPUSCULAR HGB CONC 33.3 g/dl (32.0-37.0); MEAN CORPUSCULAR VOLUME 87.8 fl (82.0-101.0); MEAN PLATELET VOLUME 10.9 fl (7.4-10.4); MONOCYTE # 0.9 10^3/ul (0.3-0.9); MONOCYTES % 8.2 % (0.0-11.0); NEUTROPHIL # 5.6 10^3/ul (1.6-7.5); NEUTROPHILS % 53.3 % (39.0-77.0); PLATELET COUNT 217 10^3/UL (140-415); RED BLOOD COUNT 4.44 10^6/ul (4.70-6.10); RED CELL DISTRIBUTION WIDTH 13.2 % (11.5-14.5); WHITE BLOOD COUNT 10.6 10^3/ul (4.8-10.8)
[2016-10-09] MEDS: ASPIRIN (EC) 81 MG TAB PO SCH (09:22)
[2016-10-09] MEDS: DOCUSATE SODIUM 100 MG CAP PO SCH (09:22)
[2016-10-09] MEDS: FAMOTIDINE 20 MG TAB PO SCH (09:22)
[2016-10-09] MEDS: METOPROLOL 25 MG TAB PO SCH (09:22)
[2016-10-09] MEDS: HEPARIN 5,000 UNIT/0.5 ML SYG SC SCH (09:35)
[2016-10-09] MEDS ORDERED: ASPI-664 PO (11:02)
[2016-10-09] MEDS ORDERED: METO-448 PO (11:02)
--- NOTE | 2016-10-09 11:32 | CONS ---
Date/Time of Note Date/Time of Note DATE: 10/09/16 TIME: 11:31 Assessment/Plan Assessment/Plan Additional Assessment/Plan 1. Acute hypertensive emergency. 2. Acute kidney injury on chronic kidney disease stage IV, progressing to end- stage renal disease. 3. History of chronic kidney disease stage IV secondary to hypertensive nephrosclerosis. The patient has not been seen by a doctor and has not been taking medications for the last few years. 4. History of hypertension. PLAN: started on HD outpatietn HD placement requested Consultation Date/Type/Reason Admit Date/Time Oct 06, 2016 at 23:10 Type of Consultation: NEPHROLOGY Referring Provider: KATHRIN SANDERS MD 24 HR Interval Summary Free Text/Dictation started on HD, outpatient HD requested Exam/Review of Systems Vital Signs Vitals Vital Signs Date Time Temp Pulse Resp B/P Pulse Ox O2 Delivery O2 Flow Rate FiO2 10/09/16 08:26 75 10/09/16 07:41 98.2 18 161/95 96 10/09/16 05:44 Room Air 10/08/16 13:20 2.0 Intake and Output 10/08/16 10/08/16 10/09/16 15:00 23:00 07:00 Intake Total 1000 ml 940 ml 500 ml Output Total 900 ml 1500 ml Balance 100 ml -560 ml 500 ml Exam GENERAL: Awake, alert, in moderate distress. HEENT: Normal. Oropharynx clear. NECK: Supple, no JVD, no lymphadenopathy. LUNGS: Clear to auscultation. Bibasilar crackles, rales present. HEART: S1, S2, with regular rhythm. ABDOMEN: Soft, nontender, nondistended. Bowel sounds are present. EXTREMITIES: No clubbing, cyanosis, or edema. NEUROLOGICAL: Nonfocal, intact. PSYCHIATRIC: Appropriate affect and mood Results Result Diagram: 10/09/16 0600 10/09/16 0600 Results 24 hrs Laboratory Tests Test 10/09/16 06:00 Anion Gap 18 H Basophils # 0.0 Basophils % 0.4 Blood Urea Nitrogen 63 H Calcium Level 8.4 Carbon Dioxide Level 28 Chloride Level 97 Creatinine 5.31 H Eosinophils # 0.4 Eosinophils % 3.5 Glucose Level 92 Hematocrit 39.0 L Hemoglobin 13.0 L Lymphocytes # 3.6 H Lymphocytes % 34.2 Mean Corpuscular Hemoglobin 29.3 Mean Corpuscular Hemoglobin Concent 33.3 Mean Corpuscular Volume 87.8 Mean Platelet Volume 10.9 H Monocytes # 0.9 Monocytes % 8.2 Neutrophils # 5.6 Neutrophils % 53.3 Nucleated Red Blood Cells # 0.0 Nucleated Red Blood Cells % 0.0 Platelet Count 217 Potassium Level 3.6 Red Blood Count 4.44 L Red Cell Distribution Width 13.2 Sodium Level 139 White Blood Count 10.6 Medications Medications Current Medications Hydralazine HCl (Apresoline) 10 mg Q6H PRN IV sbp>160mmhg Last administered on 10/07/16 03:19; Admin Dose 10 MG; Start 10/06/16 at 21:30 Metoprolol Tartrate (Lopressor) 25 mg BID PO Last administered on 10/09/16 09: 22; Admin Dose 25 MG; Start 10/06/16 at 21:30 Aspirin (Halfprin) 81 mg DAILY PO Last administered on 10/09/16 09:22; Admin Dose 81 MG; Start 10/07/16 at 09:00 Docusate Sodium (Colace) 100 mg BID PO Last administered on 10/09/16 09:22; Admin Dose 100 MG; Start 10/07/16 at 09:00 Ondansetron HCl (Zofran Inj) 4 mg Q6H PRN IV NAUSEA AND/OR VOMITING; Start 10/06 at 21:30 Famotidine (Pepcid) 20 mg DAILY PO Last administered on 10/09/16 09:22; Admin Dose 20 MG; Start 10/07/16 at 09:00 Heparin Sodium (Porcine) (Heparin (5000 Units/0.5 ml)) 5,000 unit BID SC Last administered on 10/09/16 09:35; Admin Dose 5,000 UNIT; Start 10/07/16 at 09:00 Hydralazine HCl (Apresoline) 25 mg Q8 PO Last administered on 10/09/16 06:29; Admin Dose 25 MG; Start 10/06/16 at 22:00 Acetaminophen (Tylenol Tab) 650 mg Q6H PRN PO PAIN AND OR ELEVATED TEMP Last administered on 10/08/16 17:20; Admin Dose 650 MG; Start 10/07/16 at 07:00 CHAPIN VIDALES MD Oct 09, 2016 11:32
[2016-10-09] MEDS ORDERED: LISINOPRIL 20 MG TAB PO ONE (12:00)
[2016-10-09] MEDS ORDERED: LISI20TA11 PO (13:59)
--- NOTE | 2016-10-09 14:02 | PDOCDIS ---
Discharge Instructions DIAGNOSIS Discharge Diagnosis: Hypertension, ESRD on HD CONDITION Patient Condition: Stable HOME CARE INSTRUCTIONS: Special Diet: Renal Diet ACTIVITY: Activity Restrictions: Slowly Increase Activity Rest between Activity Avoid heavy lifting FOLLOW UP/APPOINTMENTS Appointments follow up with primary care physician in one week. follow up with Dr. Andreas Mcgovern in one week. follow up with dialysis as scheduled. OTHER ORDERS: Other Orders: Hypertension - please take the medications as prescribed - metoprolol and lisinopril ESRD on HD - continue with dialysis as scheduled KATHRIN SANDERS MD Oct 09, 2016 14:02
--- NOTE | 2016-10-09 14:22 | DS ---
DATE OF ADMISSION: 10/06/2016 DATE OF DISCHARGE: 10/09/2016 DISCHARGE DIAGNOSES: 1. Hypertensive urgency, resolved. 2. Acute renal failure turning into end-stage renal disease on dialysis. 3. Hypokalemia, repleted. 3. Hypomagnesemia, repleted. HOSPITAL COURSE: This is an unfortunate 51-year-old male coming in for routine physical and was fo und to have severely elevated blood pressure, sent to the ER for further evaluation and treatment wi th renal failure, creatinine of 5.6. He was admitted to telemetry for further evaluation and treatm ent. Nephrology was consulted. The patient's initial labs had shown a white count of 11.1, H and H 12.7 and 37.2, platelets of 202, current white count is 10.6, H and H 13.0 and 39.0 with platelets of 217. Chemistry shows sodium was 139, potassium 3.4, chloride 194, carbon dioxide 30, anion gap 1 8, BUN of 76, creatinine 5.59, glucose of 101. Hemoglobin A1c of 5.4. Uric acid was 9.3, calcium 8 .0, magnesium was 1.8, total bilirubin 0.2, indirect bilirubin 0.2, AST of 27, ALT of 22, alkaline p hosphatase 108. His creatinine kinase of 222. Troponin I x2 is less than 0.012, lipase of 194. TS H of 2.46. Triglycerides 399, cholesterol 282, LDL 172, HDL 30, current BUN and creatinine of 63 an d 5.31. This is prior to getting dialysis. The patient did have a PermCath placed. Coags were neg ative. Toxicology was negative. Urine showed 1+ hemoglobin, 2+ total protein. Urine random creati nine of 36.15. Urine random sodium of 52. Serology hepatitis A, B and C were negative. HIV 1 and 2 were negative. Patient did have a chest x-ray completed on admission showing no acute cardiopulmo nary disease, had a renal ultrasound showin. Increased renal cortex echogenicity concerning for medical renal disease. Normal renal size. T wo simple appearing acquired cysts of the kidney. 2. No evidence of hydronephrosis. Ultrasound localization for a PermCath was placed on the right u pper jugular vein. Subsequently, on the day of discharge, patient's overall vital signs are improved. No other acute e vents. I spoke to the patient about the care plan. He understands he is going to need to start swati lysis at this time. Follow up with primary care physician. DISPOSITION: Home. CONDITION: Stable. DISCHARGE MEDICATIONS: Include: 1. Aspirin 81 mg p.o. daily. 2. Lisinopril 10 mg p.o. daily. 3. Metoprolol 25 mg p.o. b.i.d. FOLLOWUP: The patient will follow up with primary care physician in 1 week. Will follow up with Dr Soraya Mcgovern in 2 weeks. Will follow up with his dialysis as scheduled. Patient and consultants were made aware of this and agree with the plan. COORDINATION OF DISCHARGE: Greater than 35 minutes. Dictated By: KATHRIN DALAL/DREW Conf#: [id number] DID#: [id number]
[2016-10-10] MEDS ORDERED: LISINOPRIL 20 MG TAB PO SCH (09:00)
== END 2016-10-09 21:00 | disposition home or self-care (01) | DRG 682 ==
LOC: E/R 15:19 → TEL 23:10
PROVIDERS: ADMIT Family Medicine; ATTEND Family Medicine
PROC: 5A1D60Z (ICD-10-PCS; principal; 2016-10-08)
PROC: 02H633Z Insertion of Infusion Device into Right Atrium, Percutaneous Approach (ICD-10-PCS; 2016-10-08)
DX: I12.0 Hypertensive chronic kidney disease with stage 5 chronic kidney disease or end stage renal disease (principal); N18.6 End stage renal disease; N17.9 Acute kidney failure, unspecified; E87.6 Hypokalemia; I16.0 Hypertensive urgency; Z99.2 Dependence on renal dialysis; E83.42 Hypomagnesemia
CPT/HCPCS: 36415; 36561; 71010; 76775; 76942; 80048; 80053; 80061; 80307; 81001; 81003; 82550; 82553; 83036; 83690; 83735; 84155; 84300; 84443; 84484; 84560; 85025; 85610; 85730; 86703; 86704; 86709; 86803; 87340; 89190; 90935; 93005; 93306; 96374; 96375; C1750; J0360; J0610; J0690; J1644; J2250; J3010; J3475; J3480; J7030; J7040